=== PATIENT | male | born 1940 | race Caucasian/White ===

== ENCOUNTER 2022-10-18 11:38 | Observation (INO) ==
[2022-10-18] MEDS ORDERED: NS 0.9% 1000 ml BAG 1,000 ML IV ONE (11:45)
[2022-10-18] MEDS ORDERED: Ondansetron 4 mg VIAL 2 MG/ML 2 ml VIAL IV ONE (11:46)
[2022-10-18 12:03] LABS: ABS Lymphocytes 1.7 10^3/ul (1.0-4.8); ABS Monocytes 0.4 10^3/ul (0-0.8); ABS Neutrophils 10.2 10^3/ul (1.5-7.7); Eosinophil % 0.4 %; Hematocrit 46 % (42-52); Lymphocyte % 13.5 %; Mean Corpuscular HGB Conc 33 g/dL (31-36); Mean Corpuscular Hemoglobin 30 pg (27-31); Mean Corpuscular Volume 91 fL (80-94); Mean Platelet Volume 7.6 fL (7.4-10.4); Platelet Count 225 10^3/uL (150-450); Red Blood Count 5.02 10^6 /uL (4.18-5.48); Red Cell Distribution Width 14 % (10-15); White Blood Count 12.3 10^3/uL (3.5-10.8)
[2022-10-18 12:53] LABS: Albumin/Globulin Ratio 1.5 (1-3); Calcium 8.9 mg/dL (8.6-10.3); Globulin 2.7 g/dL (2-4); Magnesium 1.6 mg/dL (1.9-2.7); Potassium 4.3 mmol/L (3.5-5.0); Total Bilirubin 0.7 mg/dL (0.2-1.0); Total Protein 6.7 g/dL (6.4-8.9); eGFR CKD-EPI 75.6 (>60)
[2022-10-18] MEDS ORDERED: dilTIAZem (ADVAN VIAL) 125 MG/125 ML ADDV.BAG IV SCH (13:00)
[2022-10-18 13:06] LABS: TSH Ultra Thyroid Stim Horm 3.44 mcIU/mL (0.34-5.60)
[2022-10-18 13:28] LABS: High Sensitivity Troponin 1 Hr 13 pg/mL (<20)
[2022-10-18] MEDS ORDERED: Magnesium Sulfate IV 1GM/100ML 1 GM/100 ML BAG IV ONE (16:57)
[2022-10-18] MEDS ORDERED: NS 0.9% 1000 ml BAG 1,000 ML IV SCH (17:00)
[2022-10-18] MEDS: Heparin 5000 UNITS/ML 1 mL VIAL SUBCUT SCH (21:17)
[2022-10-19] MEDS: Heparin 5000 UNITS/ML 1 mL VIAL SUBCUT SCH ×2 (05:13→14:18)
[2022-10-19 07:10] LABS: Calcium 8.4 mg/dL (8.6-10.3); Creatinine, Serum 0.98 mg/dL (0.67-1.17); Magnesium 1.9 mg/dL (1.9-2.7); Potassium 4.2 mmol/L (3.5-5.0); eGFR CKD-EPI 77.5 (>60)
[2022-10-19 18:32] VITALS: BP 116/72
== END 2022-10-19 20:39 | disposition home or self-care (01) ==
LOC: EDHOLD 11:38 → ED 11:38 → SUATTDRO 17:39 → MEDTELE 22:26
PROVIDERS: ADMIT Internal Medicine; ATTEND Internal Medicine